=== PATIENT | male | born 1965 | race Caucasian/White ===

== ENCOUNTER → 2020-12-15 | Outpatient (CLI) | payer MEDICARE ==
[~2020-12-15] MED LIST: ALDACTONE 25MG25 MG PO; AMIODARONE HCL200 MG PO; CLEOCIN HCL300 MG PO; COLCHICINE0.6 M1 PO; COREG 3.125M3.125 MG PO; ENTRESTO 24 MG1 EACH PO; INDOCIN SR CAP75 MG PO; K-DUR TAB 10 M10 MEQ PO; LASIX40 MG PO; LEVAQUIN500 MG PO; LOPRESSOR 25 MG25 MG PO; METOPROLOL SUCC25 MG PO; REVATIO 20 MG T20 MG PO; SYNTHROID200 MCG PO; TYLENOL W/CODEIN1 E1 PO; ZYLOPRIM 300 M300 MG PO
== END ==
LOC: US 13:30
DX: I73.9 Peripheral vascular disease, unspecified (principal); M79.604 Pain in right leg; M79.605 Pain in left leg
CPT/HCPCS: 93925

== ENCOUNTER → 2021-01-10 | Outpatient (CLI) | payer MEDICARE | LOC: HEART 5 09:30 | DX: I42.9 Cardiomyopathy, unspecified (principal); I50.22 Chronic systolic (congestive) heart failure; I50.9 Heart failure, unspecified; I50.1 Left ventricular failure, unspecified | CPT/HCPCS: 93306 ==

== ENCOUNTER 2021-02-28 14:36 | Inpatient (IN) | payer MEDICARE ==
[~2021-02-28] VITALS: Ht 185.4 cm; Wt 122.5 kg
[~2021-02-28 14:36] MED LIST changes: -ALDACTONE 25MG25 MG PO; -AMIODARONE HCL200 MG PO; -K-DUR TAB 10 M10 MEQ PO; -METOPROLOL SUCC25 MG PO; -ZYLOPRIM 300 M300 MG PO
[2021-02-28] MEDS ORDERED: ZYLOPRIM 300 M300 MG PO (23:23)
[2021-02-28] MEDS ORDERED: ALDACTONE 25MG25 MG PO (23:25)
[2021-03-01 01:09] LABS: HEMOGLOBIN 13.6 gm/dl (14.0-17.5); RED BLOOD COUNT 4.21 M/UL (4.20-5.50); WHITE BLOOD COUNT 9.7 K/UL (4.5-11.0)
[2021-03-01 15:21] LABS: BUN/CREATININE RATIO 15 (0-10)
[2021-03-02 04:32] LABS: HEMOGLOBIN 12.8 gm/dl (14.0-17.5); RED BLOOD COUNT 4.02 M/UL (4.20-5.50)
[2021-03-02 04:33] LABS: WHITE BLOOD COUNT 6.9 K/UL (4.5-11.0)
[2021-03-02 04:57] LABS: BUN/CREATININE RATIO 15 (0-10)
[2021-03-02] MEDS ORDERED: K-DUR TAB 10 M10 MEQ PO (14:32)
[2021-03-02] MEDS ORDERED: METOPROLOL SUCC25 MG PO (14:32)
[2021-03-02] MEDS ORDERED: AMIODARONE HCL200 MG PO ×2 (14:32)
[2021-03-03 08:15] LABS: CORTISOL 2.9 ug/dL (.)
[2021-03-03 09:17] LABS: PROLACTIN 14.1 ng/mL (4.0-15.2)
== END 2021-03-02 15:16 | disposition home or self-care (01) | DRG 309 ==
LOC: CCU 23:11
PROVIDERS: Internal Medicine; ADMIT Internal Medicine
DX: I47.2 Ventricular tachycardia (principal); I50.22 Chronic systolic (congestive) heart failure; I42.8 Other cardiomyopathies; E03.9 Hypothyroidism, unspecified; I11.0 Hypertensive heart disease with heart failure; E66.8 Other obesity; M10.9 Gout, unspecified; E78.5 Hyperlipidemia, unspecified; M19.90 Unspecified osteoarthritis, unspecified site; E87.8 Other disorders of electrolyte and fluid balance, not elsewhere classified; I49.5 Sick sinus syndrome; Z88.0 Allergy status to penicillin; Z95.810 Presence of automatic (implantable) cardiac defibrillator; Z88.8 Allergy status to other drugs, medicaments and biological substances; Z68.36 Body mass index [BMI] 36.0-36.9, adult
CPT/HCPCS: 36415; 70450; 80053; 81001; 82024; 82533; 82550; 82553; 83735; 83880; 84100; 84146; 84439; 84443; 84481; 84484; 85025; 86140; 93005; J7030; J7040

== ENCOUNTER → 2021-05-16 | Outpatient (CLI) | payer MEDICARE ==
[~2021-05-16] MED LIST changes: +ALDACTONE 25MG25 MG PO; +AMIODARONE HCL200 MG PO; +K-DUR TAB 10 M10 MEQ PO; +METOPROLOL SUCC25 MG PO; +ZYLOPRIM 300 M300 MG PO
== END ==
LOC: HEART 5 09:05
DX: R06.02 Shortness of breath (principal); Z79.899 Other long term (current) drug therapy
CPT/HCPCS: 94010; 94729

== ENCOUNTER → 2022-06-13 | Outpatient (CLI) | payer MEDICARE | LOC: HEART 5 09:16 | DX: R06.02 Shortness of breath (principal); Z79.899 Other long term (current) drug therapy | CPT/HCPCS: 94010; 94729 ==